=== PATIENT | male | born 2000 | race Caucasian/White ===

== ENCOUNTER → 2021-02-02 | Outpatient (CLI) | payer OTHER ==
--- NOTE | 2021-02-03 08:30 | XR ---
EXAMINATION TYPE: XR wrist limited bilateral DATE OF EXAM: 02/02/2021 COMPARISON: None HISTORY: Fall down stairs, pain TECHNIQUE: 2 view bilateral wrists FINDINGS: No acute fractures or dislocations are evident. Soft tissues appear normal. The right scapholunate space is at the upper limits of normal. MRI could be performed if there is cli nical concern for disassociation. Follow-up exams would be recommended 7-10 days from acute trauma for continued pain. Nuclear medicin e bone scan would be recommended for pain at the anatomic snuff box. IMPRESSION: 1. Right scapholunate space at the upper limits of normal. MRI could be performed there is clinical concern for disassociation. 2. No acute osseous abnormality. Follow-up can be performed as clinically indicated discussed above
== END | disposition home or self-care (01) ==
LOC: RADXRMAIN 16:46
PROVIDERS: ATTEND Internal Medicine
DX: M25.531 Pain in right wrist (principal); M25.532 Pain in left wrist; S69.91XA Unspecified injury of right wrist, hand and finger(s), initial encounter; S69.92XA Unspecified injury of left wrist, hand and finger(s), initial encounter